=== PATIENT | male | born 1990 | race Caucasian/White ===

== ENCOUNTER 2020-08-02 16:22 | Emergency (ER) | payer MEDICAID ==
[~2020-08-02] VITALS: Ht 188 cm; Wt 82.1 kg
[2020-08-02 16:36] VITALS: BP 128/100
[2020-08-02] MEDS ORDERED: KETOROLAC 60 MG/2 ML VIAL IM ONE (16:55)
[2020-08-02 17:05] VITALS: BP 128/100
== END 2020-08-02 17:05 | disposition home or self-care (01) ==
LOC: MED 16:22
DX: K14.0 Glossitis (principal); F17.210 Nicotine dependence, cigarettes, uncomplicated
CPT/HCPCS: 96372; 99283; J1885

== ENCOUNTER 2020-11-22 10:59 | Emergency (ER) | payer BC, MEDICAID ==
[~2020-11-22] VITALS: Ht 188 cm; Wt 88.0 kg
[2020-11-22 11:03] VITALS: BP 127/86
[2020-11-22] MEDS ORDERED: AMOX1TAB8 PO (12:10)
[2020-11-22 12:29] VITALS: BP 127/86
== END 2020-11-22 12:29 | disposition home or self-care (01) ==
LOC: MED 10:59
DX: K04.7 Periapical abscess without sinus (principal); F17.200 Nicotine dependence, unspecified, uncomplicated; Z79.899 Other long term (current) drug therapy
CPT/HCPCS: 99284

== ENCOUNTER 2022-01-16 17:18 | Emergency (ER) | payer OTHER, BC ==
[~2022-01-16] VITALS: Ht 188 cm; Wt 103.0 kg
[~2022-01-16 17:18] MED LIST: AMOX-1230 PO
[2022-01-16 17:29] VITALS: BP 140/83
--- NOTE | 2022-01-16 17:32 | NUR ---
DR HAYES IN TRIAGE FOR EVAL
[2022-01-16] MEDS ORDERED: LIDOCAINE 5% 1 EA PATCH TP STA (17:34)
[2022-01-16] MEDS ORDERED: KETOROLAC 30 MG/ML VIAL IM ONE (17:35)
[2022-01-16] MEDS ORDERED: IBUP-1842 PO (17:37)
[2022-01-16] MEDS ORDERED: CYCL-711 PO (17:37)
[2022-01-16] MEDS ORDERED: ACET-8386 PO (17:37)
[2022-01-16] MEDS ORDERED: LID5T TP (17:37)
--- NOTE | 2022-01-16 17:53 | NUR ---
PT TAKEN TO XRAY VIA W/C
--- NOTE | 2022-01-16 17:57 | NUR ---
31/M PRESENTS TO ED WITH C/O LEFT LOWER BACK PAIN SINCE MONDAY. PATIENT STATES HE FELL "ABOUT 5 FEET" OFF A LADDER AND HAS HAD WORSENING PAIN SINCE THAT WORSENS WHEN LYING DOWN. PATIENT DENIES HEAD OR NECK INJURY, DENIES LOC, PATIENT AMBULATORY UPON ARRIVAL TO ED.
--- NOTE | 2022-01-16 18:11 | NUR ---
PT RETURNED FROM XRAY
[2022-01-16 19:01] VITALS: BP 124/89
--- NOTE | 2022-01-16 19:01 | NUR ---
Patient discharged with v/s stable. Written and verbal after care instructions ABOUT CONTUSION given and explained. Patient alert, oriented and verbalized understanding of instructions. Ambulatory with steady gait. All questions addressed prior to discharge. ID band removed. Patient advised to follow up with PMD. Rx of NORCO 5-325, FLEXERIL, MOTRIN AND LIDODERM PATCH given. Patient educated on indication of medication including possible reaction and side effects. Opportunity to ask questions provided and answered. PATIENT EDUCATED ON USE OF NARCOTICS, ADVISED TO AVOID DRINKING OR DRIVING WHILE USING, PATIENT VERBALIZED UNDERSTANDING.
== END 2022-01-16 19:01 | disposition home or self-care (01) ==
LOC: MED 17:18
DX: S20.222A Contusion of left back wall of thorax, initial encounter (principal); F17.210 Nicotine dependence, cigarettes, uncomplicated; W11.XXXA Fall on and from ladder, initial encounter; Y93.89 Activity, other specified; Y92.89 Other specified places as the place of occurrence of the external cause; Y99.8 Other external cause status
CPT/HCPCS: 72100; 96372; 99283; J1885

== ENCOUNTER 2024-02-25 19:10 | Emergency (ER) | payer BC, OTHER ==
[~2024-02-25] VITALS: Ht 188 cm; Wt 111.1 kg
[~2024-02-25 19:10] MED LIST changes: +ACET-8905 PO; +CYCL-711 PO; +IBUP-1842 PO; +LID5T TP
[2024-02-25 19:37] VITALS: BP 125/95; PULSE 83; RESP 18; TEMP 98; O2SAT 99
[2024-02-25] MEDS ORDERED: AMOX-1230 PO (20:13)
[2024-02-25] MEDS: AMOXIL/CLAVULANATE 875/125 MG 1 TAB PO ONE (20:19)
[2024-02-25 20:24] VITALS: BP 125/95; PULSE 83; RESP 18; TEMP 98; O2SAT 99
== END 2024-02-25 20:24 | disposition home or self-care (01) ==
LOC: MED 19:10
DX: K04.7 Periapical abscess without sinus (principal); R22.9 Localized swelling, mass and lump, unspecified; F17.210 Nicotine dependence, cigarettes, uncomplicated; Z79.899 Other long term (current) drug therapy
CPT/HCPCS: 99283